=== PATIENT | female | born 1980 | race Caucasian/White ===

== ENCOUNTER 2021-01-12 15:40 | Observation (INO) ==
[2021-01-12] MEDS ORDERED: Naloxone 0.4 MG/ML INJ IVP PRN (21:25)
[2021-01-12] MEDS ORDERED: Ondansetron 4 MG/2 ML VIAL IVP PRN (21:25)
[2021-01-12] MEDS ORDERED: Nitroglycerin 0.4 MG TAB.SUBL SL PRN (21:28)
[2021-01-12] MEDS ORDERED: Perflutren Lipid Microsphere 1.3 ML in 0.9 % Sodium Chloride 8.7 ML IVP PRN (21:30)
[2021-01-12] MEDS ORDERED: Acetaminophen/Aspirin/Caffeine TABLET PO PRN (23:38)
[2021-01-12] MEDS: Melatonin 3 MG TABLET PO PRN (23:54)
[2021-01-13 02:37] LABS: Hematocrit 34.9 % (35.3-44.9); Hemoglobin 11.8 g/dL (11.5-15.4); Mean Corpuscular HGB Conc 33.8 g/dL (31.6-35.5); Mean Corpuscular Hemoglobin 30.3 pg (28.0-33.3); Mean Corpuscular Volume 89.7 fL (83.0-100.0); Platelet Count 267 K/mcL (140-400); Red Blood Count 3.89 M/mcL (3.82-4.97); Red Cell Distribution Width 14.5 % (11.5-14.5); White Blood Count 9.6 K/mcL (4.3-11.1)
[2021-01-13 02:42] LABS: BUN/Creatinine Ratio 21 (6-26); Blood Urea Nitrogen 23 mg/dL (6-20); Calcium 9.1 mg/dL (8.6-10.3); Carbon Dioxide 31 mEq/L (23-29); Chloride 106 mEq/L (98-107); Glucose 108 mg/dL (70-105); Osmolality,Calculated 298 (280-300); Sodium 142 mEq/L (136-145); eGFR For African Americans > 60 (> 60); eGFR For Non-African Americans 55 (> 60)
[2021-01-13] MEDS ORDERED: Regadenoson 0.4 MG/5 ML SYRINGE IVP ONE ×2 (10:57→11:09)
[2021-01-13] MEDS ORDERED: hydrOXYzine pamoate 25 MG CAPSULE PO PRN (16:37)
[2021-01-13] MEDS: Melatonin 3 MG TABLET PO PRN (23:48)
[2021-01-14 01:20] LABS: Basophils % 0.4 %; Eosinophils # 0.6 K/mcL (0.0-0.6); Eosinophils % 5.6 %; Hematocrit 34.6 % (35.3-44.9); Hemoglobin 11.3 g/dL (11.5-15.4); Immature Granulocytes % 0.3 % (0-4); Lymphocytes # 3.1 K/mcL (0.6-4.6); Lymphocytes % 30.8 %; Mean Corpuscular HGB Conc 32.7 g/dL (31.6-35.5); Mean Corpuscular Hemoglobin 29.7 pg (28.0-33.3); Mean Corpuscular Volume 90.8 fL (83.0-100.0); Mean Platelet Volume 10.1 fL (9.4-12.4); Monocytes # 0.7 K/mcL (0.0-1.3); Monocytes % 6.6 %; Neutrophils # 5.6 K/mcL (1.6-8.9); Platelet Count 255 K/mcL (140-400); Red Blood Count 3.81 M/mcL (3.82-4.97); Red Cell Distribution Width 14.3 % (11.5-14.5); Segmented Neutrophils % 56.3 %; White Blood Count 9.9 K/mcL (4.3-11.1)
[2021-01-14 01:39] LABS: Alanine Aminotransferase 9 Units/L (7-52); Albumin 3.8 g/dL (3.5-5.7); Albumin/Globulin Ratio 1.5 (1.1-2.2); Alkaline Phosphatase 53 Units/L (34-104); Aspartate Amino Transferase 13 Units/L (13-39); BUN/Creatinine Ratio 23 (6-26); Bilirubin,Total 0.2 mg/dL (0.3-1.0); Blood Urea Nitrogen 22 mg/dL (6-20); Calcium 8.9 mg/dL (8.6-10.3); Carbon Dioxide 29 mEq/L (23-29); Chloride 104 mEq/L (98-107); Globulin 2.5 g/dL (2.4-3.5); Glucose 110 mg/dL (70-105); Osmolality,Calculated 292 (280-300); Potassium 3.5 mEq/L (3.5-5.1); Sodium 139 mEq/L (136-145); Total Protein 6.3 g/dL (6.4-8.9); eGFR For African Americans > 60 (> 60); eGFR For Non-African Americans > 60 (> 60)
[2021-01-14 08:21] VITALS: BP 125/86; PULSE 68; TEMP 98.2; O2SAT 97
[2021-01-14] MEDS ORDERED: amLODIPine 5 MG TABLET PO SCH (09:00)
[2021-01-14] MEDS ORDERED: Loratadine 10 MG TABLET PO SCH (09:00)
== END 2021-01-14 10:25 | disposition home or self-care (01) ==
LOC: 3BNU
PROVIDERS: ADMIT Student in an Organized Health Care Education/Training Program; ATTEND Student in an Organized Health Care Education/Training Program